=== PATIENT | female | born 1965 | race African-American/Black ===

== ENCOUNTER 2025-02-25 12:51 | Outpatient (CLI) | payer BC, SELFPAY ==
--- OUTSIDE RECORDS SUMMARY | 2025-02-25 13:54 | XMS_ITS | Clinical Summary ---
Author Organization [facility] mame Address [address] [place] [address] Care Team Providers Care Masonry Supervisor Name Role Phone Jeni Carmona Primary Care Provider Allergies Active Allergy Reactions Criticality Noted Date Comments Lisinopril Cough Low 01/03/2018 Medications TRIAMTERENE ORAL Take 37.5 mg by mouth daily. Active rosuvastatin (CRESTOR) 10 mg tablet Take 10 mg by mouth daily at bedtime. Active cephALEXin (KEFLEX) 500 mg capsule Take 1 Capsule (500 mg) by mouth 4 times daily. 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+;Her2 3+ Hair follicle infection 01/03/2018 Overview (01/03/2018): L axilla Encounters Date Type Department Care Team Description 02/06/2025 External Device Data ST[facility] ABSTRACTION Provider, Abstract 02/04/2025 External Device Data [facility] ABSTRACTION Provider, Abstract 12/31/2024 External Device Data [facility] ABSTRACTION Provider, Abstract 12/04/2024 External Device Data [facility] ABSTRACTION Provider, Abstract 12/04/2024 External Device Data [facility] ABSTRACTION Provider, Abstract 12/03/2024 External Device Data [facility] ABSTRACTION Provider, Abstract 12/02/2024 2:30 PM CDT Ancillary Procedure [facility] [address] [place] [address] Luis Regalado MD PMB (postmenopausal bleeding); Enlarged uterus from Last 3 Months Family History Medical History Relation Name Comments Healthy Brother Cancer Father Renal Cancer Maternal Grandfather unknown type Breast Cancer Mother age in 70s Relation Name Status Comments Brother Father Maternal Grandfather Mother Social History Tobacco Use Types Packs/Day Years Used Date Smoking Tobacco: Never Smokeless Tobacco: Never Alcohol Use Standard Drinks/Week Comments Yes 0 (1 standard drink = 0.6 oz pur e alcohol) rare Comments Unknown Sex and Gender Information Value Date Recorded Sex Assigned at Not on file Legal Sex Female 1:38 PM CDT Gender Identity Not on file Sexual Orientation Not on file 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 file Not on fi le Last Filed Vital Signs Vital Sign Reading Time Taken Comments Blood Pressure 135/79 01/03/2018 1:45 PM CDT Pulse 90 01/03/2018 1:45 PM CDT Temperature 37.4 C (99.3 F) 01/03/2018 1:45 PM CDT Respiratory Rate 20 01/03/2018 1:45 PM CDT Oxygen Saturation - - Inhaled Oxygen Concentration - - Weight 90.7 kg (200 lb) 01/03/2018 1:45 PM CDT Height 167.6 cm (5' 6) 01/03/2018 1:45 PM CDT Body Mass Index 32.28 01/03/2018 1:45 PM CDT Plan of Treatment Health Maintenance Due Date Last Done Comments Pre-Diabetes and Diabetes Screening 1964 HPV/Cotest (21-29) 1985 CERVICAL CANCER SCREENING 1994 HPV/Cotest (30-65) 1994 PAP SMEAR 1994 COLORECTAL SCREENING 2009 Colorectal Cancer Screening 2009 FIT-DNA Q 3 years 2009 FIT/FOBT Q 1 year 2009 Flex Sig/CT Colonography Q 5 years 2009 BREAST CANCER SCREENING 08/05/2025 08/05/20 24, 07/31/2023, 12/08/2017, Additional history exists DTAP/TDAP/TD VACCINES (3 - Td or Tdap) 08/05/2026 08/05/2016, 04/06/2013, 07/07/2003 RSV VACCINE (60+ or ) (1 - 1-dose 75+ series) 2039 ZOSTER VACCINE Completed 09/14/2020, 05/24/2020 INFLUENZA VACCINE Completed 06/07/2024, , 06/21/2022, Additional history exists COVID-19 Vaccine Completed 09/19/2024, 12/2022, 05/05/2023, Additional history exists HEPATITIS B VACCINES Aged Out No long er eligible based on patient's age to complete this topic Procedures Procedure Name Priority Date/Time Associated Diagnosis Comments MRI PELVIS W WO CONTRAST Routine 12/02/2024 3:47 PM CDT PMB (postmenopausal bleeding) Enlarged uterus from Last 3 Months Results * MRI PELVIS W WO CONTRAST (12/02/2024 3:47 PM CDT) Anatomical Region Laterality Modality Pelvis Magnetic Resonan ce 12/02/2024 3:47 PM CDT Addenda Addendum by Edgardo Choe MD on 12/06/2024 9:37 AM CDT Gadopiclenol (VUEWAY, ELUCIREM) 0.5 mmol/mL injection 10 mL was utilized. Impressions 12/03/2024 8:50 AM CDT IMPRESSION: Enlarged myomatous uterus as described. Narrative 12/03/2024 8:50 AM CDT INDICATION: Uterine myomas. Standard protocol and after administration of gadolinium contrast. FINDINGS: The uterus is enlarged and lobular in appearance measuring 4 cm in length by 10.4 cm in anterior posterior dimension by up to 13.1 cm in [id number]-[id number] dimension. There are multiple rounded masses throughout the uterus which are heterogeneous in appearance and of mixed-signal intensity most compatible with multiple myomas. Many are likely calcified and enhance heterogeneously following contrast administration. Several are likely degenerating as well. These average approximately 1 cm to 12 cm in size. The largest myoma noted in the fundal region. The ovaries are not discretely visualized for evaluation. There is no free fluid in the pelvis. Procedure Note Edgardo Choe MD - 12/03/2024 INDICATION: Uterine myomas. Standard protocol and after administration of gadolinium contrast. FINDINGS: The uterus is enlarged and lobular in appearance measuring 4 cm in length by 10.4 cm in anterior posterior dimension by up to 13.1 cm in [id number]-kexl dimension. There are multiple rounded masses throughout the uterus which are heterogeneous in appearance and of mixed-signal intensity most compatible with multiple myomas. Many are likely calcified and enhance heterogeneously following contrast administration. Several are likely degenerating as well. These average approximately 1 cm to 12 cm in size. The largest myoma noted in the fundal region. The ovaries are not discretely visualized for evaluation. There is no free fluid in the pelvis. IMPRESSION: Enlarged myomatous uterus as described. Luis Regalado MD MR ORDERABLES Edited Result - Final from Last 3 Months Insurance Care IT CHOICE Care IT CHOICE Care Teams Masonry Supervisor Relationship Specialty Start Date End Date Jeni Carmona MBBS PCP - General Family Practice 01/03/18
--- OUTSIDE RECORDS SUMMARY | 2025-02-25 13:54 | XMS_ITS | Encounter Summary ---
Author Organization [facility] Address [address] [place] [address] Care Team Providers Care Director Of District Office Name Role Phone Ariana Hartman MD Unavailable Cullen Singer MD Unavailable Quentin Davenport MD, Corey Guevara Unavailable Marychuy leylailaLiliane Marie Unavailable Encounter Details Date Type Department Care Team (Late st Contact Info) Description 12/30/2024 Results Follow-Up [facility] - COSTUME RENTAL CLERK [address] [place] [address], [address] [address] Luis Regalado MD [address] [place] [phone] Social History Tobacco Use Types Packs/Day Years Used Date Smoking Tobacco: Never Passive Smoke Exposure: Current Smokeless Tobacco: Never Alcohol Use Standard Drinks/Week Comments Yes 0 (1 standard drink = 0.6 oz pure alcohol) occasionally - socially Once in 6 months. 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 Author Blood Pressure < 140/90 Blood Pressure 110/62(12/25 2:12 PM CDT) No Gerda Cruz MA Blood Pressure < 140/90 Blood Pressure 110/62(12/25 2:12 PM CDT) No Nichole Engel Take recommended medication(s) Lifestyle On track(2018 3:54 PM CDT) No Gerda Cruz MA Take recommended medication(s) Lifestyle No Nichole Engel documented as of this encounter Visit Diagnoses Not on filedocumented in this encounter Care Teams Director Of District Office Relationship Specialty Start Date End Date Corey Saavedra Jr., MD PCP - Attributed-[place] [employer] 03/18/24 Ariana Hartman MD [address] [facility] [address] [place] [address] General Surgery 12/13/11 Cullen Singer MD [address] [place] [address] Dermatology 04/08/15 Liliane Mccall Care Coordination Specialist Care Management 12/04/24 01/18/25 documented as of this encounter
--- OUTSIDE RECORDS SUMMARY | 2025-02-25 13:54 | XMS_ITS | Encounter Summary ---
Author Organization [facility] Health Address [address] [place] [address] Care Team Providers Care Laborer Mine Name Role Phone Reid Coleman MD Primary Care Provider [phone] Ariana Hartman MD Unavailable [phone] Nancy Hood MD Primary Care Provide r Jeni Caromna MD Primary Care Provider [phone] Cullen Singer MD Unavailable [phone] Jeni Carmona MD Unavailable Tiffanie Bar MD Primary Care Provide r Jeni Carmona MD Primary Care Provider + Tiffanie Bar MD Primary Care Provide r Tiffanie Bar MD Unavailable [phone] Quentin Davenport MD, Corey Guevara Primary Care Provid er Unavailable Quentin Davenport MD, Corey Guevara Unavailable Marychuy vailable Liliane Mccall Unavailable Liliane Mccall Unavailable Encounter Details Date Type Department Care Team (Late st Contact Info) Description 09/20/2013 [facility]NAL [facility] [place] [address] [address] Social History Tobacco Use Types Packs/Day Years Used Date Smoking Tobacco: Never Smokeless Tobacco: Never Alcohol Use Standard Drinks/Week Comments No 0 (1 standard drink = 0.6 oz pur e alcohol) Comments Unknown Sex and Gender Information Value Date Recorded Sex Assigned at Not on file Legal Sex Female 6:23 AM AUDIO INSTALLER Gender Identity Not on file Sexual Orientation Not on file documented as of this encounter Plan of Treatment Upcoming Encounters Date Type Department Care Team (Late st Contact Info) Description 07/18/2025 9:20 AM CDT Office Visit [facility] - Family Medicine [address] [place] [phone] Park Fuentes MD [address] [place] [address] documented as of this encounter Visit Diagnoses Not on filedocumented in this encounter Additional Health Concerns Infection Onset Date Last Indicated Resolved Time COVID-19 Under Investigation 11/17/2022 11/17/2022 11/17/2022 11:57 AM AUDIO INSTALLER documented as of this encounter Care Teams Laborer Mine Relationship Specialty [place] [address] [facility] [phone] PCP - General 07/26/10 12/16/[address] [facility] [address] [place] [address] PCP - General Family Medicine 12/17/14 04/07/15 Jeni Carmona MD [facility] [place] [address] PCP - General Family Medicine 04/08/15 06/14/20 Jeni Carmona MD [address] [place] [phone] PCP - Attributed-[place] [employer] 11/10/17 02/03/21 Tiffanie Bar MD [address] [place] [address] PCP - General Family Medicine 06/15/20 04/29/21 Jeni Carmona MD [address] [place] [address] PCP - General 04/30/21 05/11/21 Tiffanie Bar MD [address] [place] [address] PCP - General Family Medicine 05/12/21 03/06/23 Tiffanie Bar MD [address] [place] [address] PCP - Attributed-[place] [employer] 11/16/21 03/04/22 Corey Saavedra Jr., MD [address] [place] [address] PCP - General Family Medicine 03/07/23 12/24/24 Corey Saavedra Jr., MD PCP - Attributed-[place] [employer] 03/18/24 Ariana Hartman MD [address] [place] [address] General Surgery 12/13/11 Cullen Singer MD [facility] [place] [address] Dermatology 04/08/15 Liliane Mccall Care Coordination Specialist Care Management 05/27/24 05/27/24 Liliane Mccall Care Coordination Specialist Care Management 12/04/24 01/18/25 documented as of this encounter
--- OUTSIDE RECORDS SUMMARY | 2025-02-25 13:54 | XMS_ITS | Patient Health Record ---
Author Organization [facility] Address [address] [facility] [address] [place], [place] [id number] Care Team Providers Care Bait Digger Name Role Phone ERWIN LOPEZ Unavailable [phone] Reason For Referral No Information Plan Of Treatment No Information Insurance Providers Payer Name Payer Address Payer Phone Subscriber Number Group Number Insured Name Patient Relationship to Insured Coverage Start Date Coverage End Date Jennifer MORGAN (Ngozi Long) [address] [place], [place] [id number] [phone] Tory Noland Self - patient is the insured
--- OUTSIDE RECORDS SUMMARY | 2025-02-25 13:54 | XMS_ITS | Patient Health Record ---
Author Organization [facility] Address [address] [place], [place] [address] Care Team Providers Care Piano Mover Name Role Phone Keo Lockwood Primary Care Provider Reason For Referral No Information Medications Medication SIG (Take, Route, Fr equency, Duration) Notes Start Date End Date Status Mucinex 600 MG Take one tablet by m outh every twelve hours as needed for cough Oral as directed 04/25/2012 Active Avelox 400 MG Oral once a day 04/25/2012 Active Immunizations Vaccine Route Administration Date Status Comme nts PSD-COV VAC MODERNA 23 12+ IM Intramuscular 08/21/2023 Adm inistered Social History Sex Assigned At : Social History Observation Description Sex Assigned At Female Plan Of Treatment No Information Insurance Providers Payer Name Payer Address Payer Phone Subscriber Number Group Number Insured Name Patient Relationship to Insured Coverage Start Date Coverage End Date Jennifer RAVI ([facility]) [address] [place] [id number] MICAELA ROBLEDO Self - patient is the insured 2
--- OUTSIDE RECORDS SUMMARY | 2025-02-25 13:54 | XMS_ITS | Clinical Summary ---
Author Organization [facility] [employer] Address [address] [place] [address] Care Team Providers Care Table Maker Name Role Phone Ariana Hartman MD Unavailable [phone] Cullen Singer MD Unavailable Quentin Davenport MD, Corey Guevara Unavailable Marychuy vailable Source Comments [facility],non-owned Affiliates and Associated Physician Practices is amultiple site organization consisting of ambulatory clinics and hospital sitesin [place], [place], [place] and [place]. This disclosure is being madepursuant to the Care Everywhere program and may not contain all information available regarding this patient. Last updated 18.[facility] [employer] Allergies Active Allergy Reactions Criticality Noted Date Comments Amlodipine Base Palpitations 06/02/2014 Lisinopril Cough 08/26/2011 Medications * Be aware that medications may not be up to date on this document. Alwaysverify current medications with the patient. fish oil/omega-3 fatty acids (Promega;Cardi-Om ega 3) 1000 MG capsule Take 1 (one) capsule by mouth 2 times daily with morning and evening meal Active Ergocalciferol (VITAMIN D PO) Take 5,000 Int'l Units by mouth once daily Active albuterol HFA (Proventil; Ventolin; Proair) 108 (90 Base) MCG/ACT inhaler Inhale 2 (two) puffs by mouth every 6 hours as needed for Wheezing or Shortness of Breath 07/21/20 24 Active losartan (Cozaar) 50 MG tabletIndications :Essential hypertension, benign Take 1 (one) tablet by mouth once daily 90 tablet 1 12/26/19 25 Active triamterene-hydro CHLOROthiazide (Maxzide-25) 37.5-25 MG tabletIndications :Essential hypertension, benign Take 1 (one) tablet by mouth once daily 90 tablet 1 12/26/19 25 Active rosuvastatin (Crestor) 10 MG tabletIndications :Mixed hyperlipidemia Take 1 (one) tablet by mouth once daily 90 tablet 1 12/26/19 25 Active ketoconazole (Nizoral) 2 % shampooIndication s:Dandruff Apply to affected area once daily 120 mL 12/26/19 25 Active loratadine (Claritin) 10 MG tabletIndications :Non-seasonal allergic rhinitis due to other allergic trigger Take 1 (one) tablet by mouth once daily 90 tablet 1 12/26/19 25 Active fluticasone propionate (Flonase) 50 MCG/ACT nasal sprayIndications: Allergic Rhinitis Hosmer 2 (two) sprays into each nostril once daily Reasons: Allergic Rhinitis 16 g 3 12/26/19 25 Active omeprazole (PriLOSEC) 20 MG capsuleIndication s:Gastroesophagea l Reflux Disease Take 1 (one) capsule by mouth once daily Reasons: Gastroesophageal Reflux Disease 90 capsule 12/26/19 25 Active Active Problems Problem Noted Date Diagnosed Date Encounter for follow-up surveillance of breast c ancer 08/06/2024 Personal history of breast cancer 08/31/2023 Status post right breast lumpectomy 08/01/2023 12/29/2023 Malignant neoplasm of female breast 05/14/2021 History of shingles 10/26/2019 Overview (10/26/2019): 10/25/2019: Diagnosis with herpes zoster on right medial thigh 2 months ago. Developed a secondary bacterial infection that has now resolved. Continues to have some itching in the area. No rash noted. Concerned that condition caused weakness of right leg. Assessment & Plan (10/26/2019 1:38 PM MATERIAL CLERK): No lesion noted on exam. Reassured. Reminded patient that she had complained of R leg pain/weakness for a year prior to episode of H. Zoster. Right wrist pain 12/10/2018 Overview (12/10/2018): 12/10/18: Hurting for 2 months. Had difficulty pulling off her boots. R handed. No swelling. Has pain mainly at night. Occasional numbness of hands. Assessment & Plan (12/23/2018 12:08 AM CDT): Advised on wrist splint. Recommend seeing a hand surgeon. Right leg weakness 07/18/2018 Overview (10/26/2019): 07/18/18: Broke her femur in 2004. Leg has been weaker and smaller since then. No numbness. 10/25/19: was favoring her R leg after the episode of shingles 2 months ago. Harder to climb stairs. Not limping. Was not exercising for nearly a month. Assessment & Plan (10/26/2019 1:41 PM MATERIAL CLERK): No neurological no loss noted. Unclear if secondary to deconditioning. Consider PT. Requesting referral to [facility]. Consider ortho consult if not improved. Assessment & Plan (07/18/2018 7:21 PM CDT): Referred to PT. Skin lesion 07/18/2018 Overview (07/18/2018): 07/18/18: Axillary skin gets dark and inflamed for the past few months. Was seen by a bandage winding machine operator a month ago and was told the changes was due to deodorant use. Has stopped use with no relief. No itching. Has lost some skin. Had boils but was told she does not have hydradenitis suppurativa. Assessment & Plan (07/18/2018 7:21 PM CDT): Unclear if secondary to reaction to radiation. Areas of alopecia noted. Recommend dermatology consult. Fluttering heart 04/27/2018 Overview (04/27/2018): 04/27/18: Has symptoms for 6 months. Feels a flutter mainly in abdomen lasting a few seconds. No sensation of dizziness or chest pain.. No episodes when awake. No difficulty breathing. Assessment & Plan (05/07/2018 12:13 AM CDT): Was told letrozole may cause the symptom which she started only 11 days ago. EKG done today is unchanged from previous one in [facility]. Recomemnd Holter monitor. GERD (gastroesophageal reflux disease) 8 Overview (04/27/2018): 04/27/18: Has occasional coughing after eating certain foods. Worsens if she lies down after eating. No blood in stools. No melena. No dysphagia. Assessment & Plan (05/07/2018 12:12 AM CDT): Recommend taking Prilosec 40 mg daily for 1-2 weeks. Recommend GI consult if symptoms do not improve. Elevated glucose 03/02/2018 Overview (12/23/2018): 03/02/18: Noted at her last blood test 6 months ago. Also noted during breast cancer treatment. 12/10/2018: Noted on labs in the past. Assessment & Plan (12/23/2018 12:07 AM CDT): Recheck hemoglobin A1c. Assessment & Plan (03/11/2018 4:25 PM CDT): Will check hemoglobin A1c. 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 Underwent R lumpectomy on January 23.Staging done. [place] node was neg. DCIS. Scheduled for radiation on March 12. No chemo. Assessment & Plan (03/02/2018 4:22 PM CDT): Will get hormone treatment after radiation. Breast neoplasm, Tis (DCIS), right 12/08/2017 Cancer Staging:Clinical stage from 12/17/2017:Stage 0(cTis (DCIS), cN0, cM0, ER+, AZ+, HER2+) - Signed by Sari Moreno MD on 09/24/2018 Overview (09/24/2018): Right, subareolar, intraductal papillary carcinoma. Clinical HgwX9T3, stage 0. ER pos 95% (strong), AZ pos 38% (strong), Her-2 pos (3+ on IHC), ki-67 high 37% 2.2 cm on US Surgeon: Dr. Hartman: initially planned bct, but cancelled. Went to cancer treatment [facility] Med onc: Dr. Grisel Merino Umbilical hernia without obstruction and without gangrene 02/06/2017 Overview (02/06/2017): Boscobel a knot at her belly button a week ago. Had some pain. Cannot feel it now. Assessment & Plan (02/06/2017 3:37 PM CDT): Reviewed treatment options. Surgical consult if it gets painful or does not reduce. Environmental allergies 07/17/2015 Overview (07/18/2018): 07/17/15:Has a chronic cough. Is congested. Ongoing for atleast 20 yrs. Using Claritin. 07/18/18: Started when she returned from the hospital in [place] a week ago. Can hear herself wheezing. Coughing up thick phlegm. No fever, ST. No sneezing. Assessment & Plan (07/18/2018 7:25 PM CDT): Normal exam. Recommend antihistamine, hydration and expectorants. May call for antibiotics if she develops a fever or symptoms worsen. Assessment & Plan (07/17/2015 4:34 PM CDT): Recommend starting Flonase and nasal saline rinses. Consider albuterol inhalor if cough persists. Preventative health care 04/08/2015 Overview (08/05/2016): Has not had a pap for 4 years. Mammgram done this month. Has not had a colonoscopy done. Assessment & Plan (08/05/2016 5:27 PM MATERIAL CLERK): Wants to see a scrap drop operator for a pap. Recommend getting a colonoscopy. Need fasting labs. Immunizations updated. Weight gain 04/08/2015 Overview (05/25/2017): Has been watching her diet and exercising in order to lose weight. Has lost a total of 8 pounds in the past year. Assessment & Plan (05/25/2017 11:16 AM CDT): Will continue lifestyle changes. Understands that weight loss will help with blood pressure control. Urge incontinence 04/08/2015 Overview (08/08/2018): 08/08/18: Ongoing for 3 yrs. Progressively worsening. Wearing pads for 2 yrs. Has not had PT. Has not been on medication. Has urge incontinence. No stress incontinence. Assessment & Plan (08/11/2018 3:13 PM MATERIAL CLERK): Wants to go to [facility] for treatment. Referred for physical therapy. Advised on Kegel exercises. Will check UA. Essential hypertension, benign 06/02/2014 Overview (10/26/2019): Taking medication at night as she tends to forget in the daytime. Denies any headaches or blurred vision. 08/05/16: Denies any symptoms of chest pain or dizziness. 02/06/17: Takes medication in am. No dizziness, chest pain or headaches. No pedal edema. 05/15/17: No chest pain or dizziness. 09/06/17: Wants refills on medication. Labs done last 13 months ago. 03/02/2018: On triamterene hydrochlorothiazide 37.5/25 mg daily. Tolerating medication well. No history of associated chest pain or palpitations. Blood pressure has improved. 07/18/18: BP was 150/98 on Sat 5 days ago. No chest pain or SOB. Gained weight after starting Arimidex. Had cough when she tried lisinopril in the past. 08/08/18: No dizziness or chest pain with decreased bp. On atenolol for nearly 3 weeks. No associated fatigue On Maxide 37.5/25 daily. 12/10/18: On triamterene HCTZ 37.5/25 and atenolol 25 mg daily. No chest pain or palpitations. No fatigue. Labs done more than a year ago. 04/23/19: Concerned about increased glucose and weight gain on bp meds. Lost 20 lbs in 4 months. Skipped atenolol last night. 10/25/19: Tends to miss her atenolol dose at night. No chest pain or SOB. Had a stressful day. Labs done a month ago. Assessment & Plan (10/26/2019 1:39 PM MATERIAL CLERK): Continue triamterene hydrochlorothiazide 37.5/25 mg daily. Blood pressure decreased on rechecking. Assessment & Plan (04/23/2019 2:59 PM CDT): Wants to try other medication. Will try irbesartan. May decrease to 1/2 dose Maxzide. Stop if bp continues to be normal. Reviewed symptoms of hypotension. BP may decrease with further weight loss. Assessment & Plan (12/23/2018 12:03 AM CDT): Need to recheck labs. Blood pressure has improved. Need to monitor. Assessment & Plan (08/11/2018 3:13 PM MATERIAL CLERK): Does not want to try a calcium channel shazia as she had side effects. Wants to go of atenolol. Recommend decreasing dose and continuing to monitor blood pressure. Continue Maxzide for now. Assessment & Plan (07/18/2018 7:22 PM CDT): Allergic to amlodipine as well. Recommend using a beta-shazia. Low dose atenolol added to regimen. Consider decreasing or stopping medication after she loses weight. Assessment & Plan (03/11/2018 4:25 PM CDT): Need to recheck labs. Medication refilled for 6 months. Assessment & Plan (09/06/2017 12:48 PM MATERIAL CLERK): Advised on getting labs done prior to further refills. BP is controlled. Assessment & Plan (05/25/2017 11:18 AM CDT): BP is essentially unchanged with addition of medication. Will continue same for now. Trying to lose weight. Need to check labs. Assessment & Plan (02/06/2017 3:50 PM CDT): Does not want to start another agent. Weight loss noted. Wants to lose more weight. BP on manual rechecking was 144/74. Wants h/o depression taken off her chart as she feels symptoms have resolved. Consider elevation in bp secondary to anxiety. Recheck blood pressure, nurse only visit. follow up in 3 months. Assessment & Plan (08/05/2016 5:26 PM MATERIAL CLERK): Need to get fasting labs prior to refilling medication. Weight gain noted. Advised on how weight loss would help decrease bp. Assessment & Plan (08/25/2015 5:12 PM MATERIAL CLERK): Blood pressure is within normal limits. She is due to take medication in 2 hours. Understands that weight loss will help. Has lost significant weight in the past month. Follow up in 3 months Assessment & Plan (07/17/2015 4:21 PM CDT): Labs done today. Will refill accordingly. Mixed hyperlipidemia 06/02/2014 Overview (04/23/2019): On medication for 5 yrs atleast. On Crestor 10 mg daily. Tolerating medication well. 12/10/2018: On rosuvastatin 10 mg daily. No complaints of myalgia. 04/23/19: Feels cholesterol has improved with diet and exercise. Would prefer to stop medication. Had cholesterol checked a few weeks ago and was normal. Assessment & Plan (04/23/2019 12:08 PM CDT): Will stop medication and recheck labs in June. Assessment & Plan (12/23/2018 12:04 AM CDT): Check labs. Assessment & Plan (03/11/2018 4:24 PM CDT): Recommend rechecking labs prior to further refills. Assessment & Plan (08/05/2016 5:27 PM MATERIAL CLERK): Need to repeat labs prior to further refills. Assessment & Plan (07/17/2015 4:22 PM CDT): Labs awaited. Vitamin D deficiency 06/02/2014 Overview (12/23/2018): 03/02/2018: Was on medication. Labs done in July, indicate normal levels. 12/10/2018: Not on medication. Assessment & Plan (12/23/2018 12:05 AM CDT): Requesting labs be rechecked. Assessment & Plan (03/11/2018 4:23 PM CDT): May continue [id number] international units of vitamin-D 3 daily. Allergic rhinitis 06/02/2014 Overview (03/02/2018): 03/02/18: Taking Claritin year- round. Worse in the spring. Has runny nose, congestion. No watering of eyes. Sneezes a lot. Fatigued. Does not want to use steroids. Assessment & Plan (03/02/2018 4:26 PM CDT): Claritin controls symptoms. Medication refilled. Consider nasal saline rinse. Anxiety state 06/02/2014 Overview (06/18/2015): Major depressive disorder, recurrent episode Overview (01/13/2021): 08/25/2015 OV, Dr. Carmona Notes she is under a lot of stress taking care of her parents, both have dementia and live in their own home. Is also stressed about work. Feels this is transient. Has been on Lexapro in the past for short periods- 2 months at a time. Is concerned about associated weight gain. Notes she is doing things like picking at her hair, cant stop thinking about her worries etc. Assessment & Plan (08/25/2015 5:14 PM MATERIAL CLERK): Symptoms are most likely due to RADHA then depression.. Will try Prozac. Strongly urged to start counseling. Follow up in 3 months. May need to increase dosage to 40 mg daily in 1-2 weeks if she does not notice any improvement. Obstructive sleep apnea 06/02/2014 Overview (10/26/2019): 10/25/19: Using a CPAP machine for atleast 5 yrs. Sees a bull riveter at [place]. Sleep study done in Jun 2018. CPAP machine was recently changed. Assessment & Plan (10/26/2019 1:40 PM MATERIAL CLERK): Encouraged to continue use of machine. Advised on better blood pressure control and weight loss with use. Seborrhea 06/02/2014 Overview (05/07/2018): 05/15/17:Ongoing for 3-4 yrs. Has scaling, mild pruritis. Has good results of Nizoral but causes drying of scalp. 04/27/18: Lesions on scalp have recurred. No bleeding Mainly scaling. Assessment & Plan (05/07/2018 12:11 AM CDT): Restart Nizoral shampoo. FU if not improved. Assessment & Plan (05/15/2017 2:57 PM CDT): Will continue Nizoral. Will hold off on fluocinolone. Differential is psoriasis. Postmenopausal bleeding Bulky or enlarged uterus Leiomyoma of body of uterus Resolved Problems Problem Noted Date Diagnosed Date Resolved Date Blood glucose elevated 12/10/201812/10 Ductal carcinoma in situ (DC IS) of right breast 12/27/2017 04/27/2018 URI (upper respiratory infection) 09/06/2017 09/20/2017 Overview (09/06/2017): I am here to get antibiotics and to check for pneumonia Started coughing 2 days ago. Had chills the following day. Sneezing. Coughing up some white phlegm. A lot of nasal discharge. Sore throat yesterday. No contacts. Assessment & Plan (09/06/2017 12:53 PM MATERIAL CLERK): Normal exam. Refused influenza test. Agreed to a CBC. Concerned socorro cough syrup would increase her bp. Will continue using Coricidin. Cough 08/25/2015 09/22/2015 Overview (08/25/2015): Chronic cough. Has underlying allergies but is concerned about using nasal steroids. No history of asthma but notes that she hears herself wheeze occasionally. Assessment & Plan (08/25/2015 5:15 PM MATERIAL CLERK): Unclear if this is cough variant asthma. Recommend trying albuterol. Medication not available at the clinic to try the nebulizer. Fatigue 04/08/2015 12/23/2018 Overweight 06/02/2014 12/23/2018 Overview (07/26/2015): Major depressive disorder, s marci episode, mild 06/02/2014 08/05/2016 Leiomyoma of uterus 06/02/2014 12/24/19 19 Overview (06/18/2015): Lumbago 06/02/2014 12/23/2018 Abnormal mammogram 06/02/2014 8 Overview (06/18/2015): Encounters Date Type Department Care Team Description 12/30/2024 Results Follow-Up [facility] - BACK PANEL PADDER [address] [place] [address], [address] [place] [phone] Luis Regalado MD 12/25/2024 2:00 PM CDT Office Visit [place] [phone] Christin Engel, EMERGENCY MANAGEMENT SPECIALIST-SUPERINTENDENT STATIONS Essential hypertension, benign (Primary Dx); Mixed hyperlipidemia; Post-menopausal bleeding; Non-seasonal allergic rhinitis due to other allergic trigger; Dandruff; Prediabetes; Personal history of breast cancer; Gastroesophageal reflux disease, unspecified whether esophagitis present 12/25/2024 Travel 12/16/2024 Telephone [place] [phone] Corey Saavedra Jr., MD Update 12/06/2024 Orders Only [facility] - BACK PANEL PADDER [address] [place] [address], [address] [phone] Luis Regalado MD PMB (postmenopausal bleeding); Bulky or enlarged uterus 12/04/2024 Patient Outreach [facility] - Care Coordination [address] [place] [phone] Liliane Mccall 11/28/[address] [phone] Corey Saavedra Jr., MD Refill Request 11/25/2024 1:30 PM CDT Office Visit [facility] - BACK PANEL PADDER [address] [place] [address], [address] [place] [phone] Luis Regalado MD Uterine leiomyoma, unspecified location (Primary Dx); Enlarged uterus; PMB (postmenopausal bleeding); Anxiety about treatment from Last 3 Months Immunizations Immunization Administration Dates Next Due COVID MODERNA 12+ yr 50mcg/0.5mL 08/21/2023 COVID PFIZER 12+YR 30MCG/0.3mL 09/19/2024 COVID PFIZER BIVALENT 12Y+ 30mcg/0.3ML 05/05/2023 Covid Pfizer primary monoval ent 12+ yr 0.3mL Purple cap 01/05/2022,08/30/2021,08/14/2021,2020,10/15/2020 FLU VACCINE QUAD IIV4 PF ID 06/21/2023 FLU VACCINE TRI IIV3 SPLIT P F IM (FLUVIRIN) 06/30/2016 INFLUENZA VACCINE 06/18/2021, 9,06/18/2019,2017,06/19/2018,06/19/2018,06/21/2017,1 ,06/30/2016,05/30/2012, 012,07/07/2003 INFLUENZA VACCINE, CELL CULT URE, TRIV. (FLUCELVAX TRIVALENT; 6MO+), 0.5 ML (CCIIV3) 06/07/2024 INFLUENZA VACCINE, QUADR. (F LUZONE; FLULAVAL; FLUARIX; AFLURIA QUADRIVALENT; 6MO+), 0.5 ML (IIV4) 06/21/2022,06/15/2020 PNEUMOCOCCAL PPSV23 08/21/2020 Pneumococcal Pcv13 Conj 05/18/2020 RSV ABRYSVO PREG OR 60y+ 0.5mL 06/07/2024 TD (AGE 7-ADULT) 07/07/2003 TDAP (7yrs+) 08/05/2016 TDAP, HISTORIC VACCINE 04/06/2013 Zoster Hzv Vacc Recombinant Inj Im 09/14,09/14/2020,05/24/2020,2019 Family History Medical History Relation Name Comments Alzheimer's Disease Father Cancer Father kidney Colon polyps Father Cancer - Breast Mother Hypertension Mother Memory Loss Mother Cancer - Breast Other cousin-paternal paternal cousin Relation Name Status Comments Brother Alive Father Mother Other cousin-paternal Alive Social History Tobacco Use Types Packs/Day Years [...] on file Legal Sex Female 6:23 AM MATERIAL CLERK Gender Identity Not on file Sexual Orientation Not on file 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 Not on file Not on file Last Filed Vital Signs Vital Sign Reading Time Taken Comments Blood Pressure 110/62 12/25/2024 2:12 PM CDT Pulse 70 12/25/2024 2:12 PM CDT Temperature 36.2 C (97.2 F) 08/21/2024 1:50 PM MATERIAL CLERK Respiratory Rate 12 12/25/2024 2:12 PM CDT Oxygen Saturation 100% 12/25/2024 2:12 PM CDT Inhaled Oxygen Concentration - - Weight 92.1 kg (203 lb) 12/25/2024 2:12 PM CDT Height 167.6 cm (5' 6) 12/25/2024 2:12 PM CDT Body Mass Index 32.77 12/25/2024 2:12 PM CDT Plan of Treatment Upcoming Encounters Date Type Department Care Team (Late st Contact Info) Description 07/18/2025 9:20 AM CDT Office Visit [facility] - Family Medicine [address] [place] [phone] Park Fuentes MD [address] [place] [address] Health Maintenance Due Date Last Done Comments COLOGUARD (AGES 45-75) - COLON CA SCREENING [address] COLONOGRAPHY - COLON CA SCREENING 1965 FIT - COLON CA SCREENING 1965 FLEX SIG - COLON CA SCREENING 1964 HIV SCREENING 1979 HEPATITIS B VACCINE (1 of 3 - Risk 3-dose series) 2024 COLONOSCOPY - COLON CA SCREENING 12/08/2024 12/08/2014 (Other - see comments) Colorectal Cancer Screening 12/08/2024 MAMMOGRAM 08/05/2025 08/05/2024, 07/19, 07/31/2023, Additional history exists PNEUMOCOCCAL VACCINE 50+ (3 of 3 - PCV20 or PCV21) 08/21/2025 08/21/2020, 05/18/2020 DTAP/TDAP/TD VACCINES (4 - Td or Tdap) 08/05/2026 08/05/2016, 04/06/2013, 07/07/2003 SCREENING FOR DIABETES 08/05/2027 , 08/05/2024, 07/31/2023, Additional history exists PAP SMEAR 10/31/2027 10/31/2024, 08/18, 12/08/2014 (Other - see comments), Additional history exists HEPATITIS C SCREENING Completed 08/10/2016 ZOSTER VACCINE Completed 09/14/2020, 08/19, 05/24/2020, Additional history exists INFLUENZA VACCINE Completed 06/07/2024, , 06/21/2022, Additional history exists Respiratory Syncytial Virus (RSV) Vaccine Pt: or over 60 yrs Completed 06/07/2024 COVID-19 VACCINE Completed 09/19/2024, 12/2022, 05/05/2023, Additional history exists DEPRESSION SCREENING Completed 12/25/2024, 01/03/2024, 09/05/2023, Additional history exists HIB VACCINE Aged Out No longer eligi ble based on patient's age to complete this topic HPV VACCINE Aged Out No longer eligi ble based on patient's age to complete this topic MENINGOCOCCAL (Group B) VACCINE SHARED DECISION-MAKING Aged Out No longer eligible based on patient's age to complete this topic MENINGOCOCCAL GROUPS A/C/Y/W VACCINE Aged Out No longer eligible based on patient's age to complete this topic Goals Goal Patient Goal Type Associated Problems Recent Progress Patient-Stated? Author Blood Pressure < 140/90 Blood Pressure 110/62(12/25 2:12 PM CDT) No Gerda Cruz MA Blood Pressure < 140/90 Blood Pressure 110/62(12/25 2:12 PM CDT) No Nichole Engel Take recommended medication(s) Lifestyle On track(2018 3:54 PM CDT) No Gerda Cruz MA Take recommended medication(s) Lifestyle No Nichole Engel Procedures Procedure Name Priority Date/Time Associated Diagnosis Comments IMAGING/RADIOLOGY/XRA Y RESULTS ORDER 12/02/2024 IMAGING/RADIOLOGY/XRA Y RESULTS ORDER 12/02/2024 MRI PELVIS WWO CONTRAST Routine 12/02/2024 PMB (postmenopausal bleeding) Bulky or enlarged uterus PAP IG LB CT+NG+TV RFLX HPV ASCU Routine 10/31/2024 2:34 PM MATERIAL CLERK PMB (postmenopausal bleeding) Pap smear for cervical cancer screening MAMMOGRAM Routine 08/05/2024 1:57 PM MATERIAL CLERK COMPREHENSIVE METABOLIC PANEL Routine 08/22/2019 11:32 AM MATERIAL CLERK Mixed hyperlipidemia HEPATITIS C ANTIBODY Routine 08/10/2016 10:38 AM MATERIAL CLERK Preventative health care from Last 3 Months or Most Recently Relevant to Health Maintenance Results * IMAGING RADIOLOGY XRAY RESULTS ORDER (12/02/2024) Only the most recent of2 resultswithin the time period is included. Anatomical Region Laterality Modality Other 12/02/2024 Narrative 12/02/2024 Ordered by an unspecified provider. us Scanned Document IMAGING Final Result * MRI Pelvis Wwo Contrast (12/02/2024) Anatomical Region Laterality Modality Pelvis Magnetic Resonan ce 12/02/2024 Luis Regalado MD MR ORDERABLES Edited Result - Final * PAP IG LB CT+NG+TV RFLX HPV ASCU (10/31/2024 2:34 PM MATERIAL CLERK) Diagnosis Comment [facility] ACCOUNT BILL Comment:NEGATIVE FOR INTRAEP ITHELIAL LESION OR MALIGNANCY. Specimen Adequacy Comment [facility] ACCOUNT BILL Comment: Satisfactory for evaluation. Endocervical and/or squamous metaplastic cells (endocervical component) are present. Clinician Provided ICD10 Comment [facility] ACCOUNT BILL Comment: N95.0 Z12.4 Performed by Comment [facility] ACCOUNT BILL Comment:Jordon Reyes totechnologist (ASCP) Comment . [facility] ACCOUNT BILL Note Comment [facility] ACCOUNT BILL Comment: The Pap smear is a screening test designed to aid in the detection of premalignant and malignant conditions of the uterine cervix. It is not a diagnostic procedure and should not be used as the sole means of detecting cervical cancer. Both false-positive and false-negative reports do occur. IGLBP CPT Code Automation Comment [facility] ACCOUNT BILL Comment: This liquid based ThinPrep(R) pap test was screened with the use of an image guided system. Note Comment [facility] ACCOUNT BILL Comment: The HPV DNA reflex criteria were not met with this specimen result therefore, no HPV testing was performed. Chlamydia trachomatis ESTELLA Negative Negative [facility] ACCOUNT BILL GC ESTELLA Negative Negative [facility] ACCOUNT BILL Trichomonas vaginalis by ESTELLA Negative Negative [facility] ACCOUNT BILL PART OF UTERINE CERVIX / Unknown 10/31/2024 2:34 PM MATERIAL CLERK 10/31/2024 Comment:Cervix Release to ia t Narrative [facility] ACCOUNT BILL - 11/04/2024 5:09 PM MATERIAL CLERK Performed at: - [facility] [id number] Plug Cutting Machine Operator: Bibi Coto MD, Phone: [phone] Performed at: 02 - [facility] [id number] Plug Cutting Machine Operator: Bibi Coto MD, Phone: [phone] Specimen Comment: [id number] Specimen Comment: No. of containers..01 ThinPrep Vial Luis Regalado MD LAB - PATHOLOGY/CYTOLOGY ORDERA BLES Final Result [facility] ACCOUNT BILL [address] [place] [address] * MAMMOGRAM (08/05/2024 1:57 PM MATERIAL CLERK) Anatomical Region Laterality Modality Other us Zen James MD SCANNING ONLY Final Result * (ABNORMAL) COMPREHENSIVE METABOLIC PANEL (08/22/2019 11:32 AM MATERIAL CLERK) Glucose 98 70 - 105 mg/dL [facility] INSURANCE BILL BUN 14 9.8 - 20.1 mg/dL [facility] INSURANCE BILL Creatinine 1.05 0.57 - 1.11 mg/dL [facility] INSURANCE BILL eGFR by MDRD 54(L) >60 mL/min/1.7 3m2 [facility] INSURANCE BILL eGFR by MDRD >60 >60 mL/min/1.7 3m2 [facility] INSURANCE BILL Sodium 138 136 - 145 mmol/L [facility] INSURANCE BILL Potassium 4.7 3.5 - 4.7 mmol/L [facility] INSURANCE BILL Chloride 98 98 - 107 mmol/L [facility] INSURANCE BILL CO2 30 23 - 31 mmol/L [facility] INSURANCE BILL Calcium 10.0 8.4 - 10.4 mg/dL [facility] INSURANCE BILL Protein Total 7.6 6.4 - 8.3 gm/dL [facility] INSURANCE BILL Albumin 4.5 3.5 - 5.2 gm/dL [facility] INSURANCE BILL Bilirubin Total 0.7 0.2 - 1.0 mg/dL [facility] INSURANCE BILL Alkaline Phosphatase 84 40 - 150 U/L [facility] INSURANCE BILL AST 24 5 - 34 U/L [facility] INSURANCE BILL ALT 24 0 - 61 U/L [facility] INSURANCE BILL Blood BLOOD SPECIMEN / Unknown 08/22/2019 11:32 AM MATERIAL CLERK 08/22/2019 Narrative Resulting Agency Comment Lab Testing performed at: [facility] [address] [place] [id number] Jeni Carmona MD LAB - CHEMISTRY ORDERABLES Final Result [facility] INSURANCE BILL [address] [place] [address] * HEPATITIS C ANTIBODY (08/10/2016 10:38 AM MATERIAL CLERK) [facility] Hepatitis C Antibody <0.1 0.0 - 0.9 s/co ratio [facility] ACCOUNT BILL Comment: Negative: < 0.8 Indeterminate: 0.8 - 0.9 Positive: > 0.9 . The CDC recommends that a positive HCV antibody result be followed up with a HCV Nucleic Acid Amplification test ([id number]). Blood BLOOD SPECIMEN / Unknown 08/10/2016 10:38 AM MATERIAL CLERK 08/10/2016 Narrative Resulting Agency Comment [facility] [address] [facility] [id number] Jeni Carmona MD LAB - CHEMISTRY ORDERABLES Final Result [facility] ACCOUNT BILL [address] [place] [address] from Last 3 Months or Most Recently Relevant to Health Maintenance Insurance ANTHEM ANTHEM Care Teams Table Maker Relationship Specialty Start Date End Date Corey Saavedra Jr., MD PCP - Attributed-[place] [employer] 03/18/24 Ariana Hartman MD [address] [place] [address] General Surgery 12/13/11 Cullen Singer MD [address] [place] [address] Dermatology 04/08/15
[2025-02-25 14:04] LABS: Anion Gap 9 mmol/L (4-12); Blood Urea Nitrogen 15 mg/dL (7-17); Calcium 9.6 mg/dL (8.4-10.2); Carbon Dioxide 29 mmol/L (22-30); Chloride 103 mmol/L (98-107); Estimated Glomerular Filt Rate > 60; Glucose 95 mg/dL (65-110); Potassium 3.8 mmol/L (3.4-5.0); Sodium 141 mmol/L (137-145)
== END 2025-02-25 12:52 | disposition home or self-care (01) ==
LOC: ANHSURGERY 12:59
PROVIDERS: Anesthesiology; Visit Provider Obstetrics & Gynecology
DX: Z79.899 Other long term (current) drug therapy (principal); Z01.812 Encounter for preprocedural laboratory examination; I10 Essential (primary) hypertension; E78.5 Hyperlipidemia, unspecified; Z85.3 Personal history of malignant neoplasm of breast
CPT/HCPCS: 36415; 80048

== ENCOUNTER 2025-02-28 01:05 | Day surgery (SDC) | payer BC, SELFPAY ==
[2025-02-21 09:01] VITALS: BMI 33.1
--- NOTE | 2025-02-21 09:13 | PC.NURSE ---
Report to the Outpatient Waiting Room, entrance under the green pavilion located off [facility], at time _0945_ on date _[id number]_. Planned Procedure Time: _1145_.? Time changes happen often and if your time is changed the preop area will call you the afternoon before. - You and your visitor will be asked to self-screen and do not enter if you have any COVID symptoms. Please call surgeon if you need to reschedule. - A mask is optional within the hospital at this time. Patients may have clear liquids (water, carbonated beverages, clear teas, apple juice) until 3 hours prior to surgery with a maximum of 20 ounces. - No food from midnight until time of surgery and no smoking, or chewing tobacco (or any form of nicotine). No chewing gum, candy or mints. Take only the following medications with a SIP of water on the morning of surgery: ___None____ DO NOT STOP ANY OF YOUR OTHER PRESCRIPTION MEDICATIONS PRIOR TO SURGERY EXCEPT THE FOLLOWING Hold all vitamins and supplements for 3 days per anesthesiologist. Medications to discontinue per physician Date to take last [id number]__[id number]___ Please no make-up, nail iraqi, hairspray, perfume, deodorant, or body powder the day of surgery.? No jewelry (including any body piercings) or valuables the day of surgery, leave them at home.? Please take a shower or bath the night before, or the morning of, surgery with an antibacterial soap.? Wear comfortable, loose fitting clothing.? - Jewelry must be removed prior to entering the operating room.? Rings and piercings that are not removed may be cut off. - The hospital will not accept responsibility for valuables.? - Please leave all valuables, including medications, at home the day of surgery. If you are going home after surgery, a licensed recycle driver must drive you home.? - NO public transportation without another adult if you receive anesthesia. - We recommend that an adult stay with you for 24 hours following discharge. - We also recommend that you do not drive, make important decision, drink alcoholic beverages, or take any drugs that were not prescribed by your health care provider for at least 24 hours after your discharge time. Follow any additional instructions given to you from your surgeon. Telephone instructions given to __Harishia__and asked if any additional questions and then verbalized understanding. Patient advised to call surgeon office or pre surgery nurse liaison [phone] if any additional questions.
--- OUTSIDE RECORDS SUMMARY | 2025-02-28 01:08 | XMS_ITS | Encounter Summary ---
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 on file Not on file Not on file documented as of this encounter Plan of Treatment Upcoming Encounters Date Type Department Care Team (Late st Contact Info) Description 07/18/2025 9:20 AM CDT Office Visit [facility] - Family Medicine [address] [place] [address] Park Fuentes MD [address] [place] [address] documented as of this encounter Goals Goal [...] on filedocumented in this encounter Care Teams Cinder Crusher Operator Relationship Specialty Start Date End Date Corey Saavedra Jr., MD PCP - Attributed-[place] [employer] 03/18/24 Ariana Hartman MD [address] [facility] [address] [place] [address] General Surgery 12/13/11 Cullen Singer MD [address] [place] [address] Dermatology 04/08/15 Liliane Mccall Care Coordination Specialist Care Management 12/04/24 01/18/25 documented as of this encounter
--- OUTSIDE RECORDS SUMMARY | 2025-02-28 01:08 | XMS_ITS | Encounter Summary ---
Author Organization [facility] Health Address [address] [place] [address] Care Team Providers Care Relief Mate Name Role Phone Reid Coleman MD Primary Care Provider [phone] Ariana Hartman MD Unavailable [phone] Nancy Hood MD Primary Care Provide r Jeni Carmona MD Primary Care Provider [phone] Cullen Singer MD Unavailable [phone] Jeni Carmona MD Unavailable Tiffanie Bar MD Primary Care Provide r Jeni Carmona MD Primary Care Provider [phone] Tiffanie Bar MD Primary Care Provide r Tiffanie Bar MD Unavailable [phone] Quentin Davenport MD, Corey Guevara Primary Care Provid er Unavailable Quentin Davenport MD, oCrey Guevara Unavailable Marychuy vailable Liliane Mccall Unavailable Liliane Mccall Unavailable Encounter Details Date Type Department Care Team (Late st Contact Info) Description 09/20/2013 [facility] [place] [address] [address] Social History Tobacco Use Types Packs/Day Years Used Date Smoking Tobacco: Never Smokeless Tobacco: Never Alcohol Use Standard Drinks/Week Comments No 0 (1 standard drink = 0.6 oz pur e alcohol) Comments Unknown Sex and Gender Information Value Date Recorded Sex Assigned at Not on file 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 Gender Identity Not on file Sexual Orientation Not on file documented as of this encounter Plan of Treatment Upcoming Encounters Date Type Department Care Team (Late st Contact Info) Description 07/18/2025 9:20 AM CDT Office Visit [facility] - Family Medicine [address] [place] [address] Park Fuentes MD [address] [place] [address] documented as of this encounter Visit Diagnoses Not on filedocumented in this encounter Additional Health Concerns Infection Onset Date Last Indicated Resolved Time COVID-19 Under Investigation 11/17/2022 11/17/2022 11/17/2022 11:57 AM DRAWING SUPERVISOR documented as of this encounter Care Teams Relief Mate Relationship Specialty [place] [address] [facility] [address] PCP - General 07/26/10 12/16/14 Nancy Hood MD [facility] [address] [place] [address] PCP - General Family Medicine 12/17/14 04/07/15 Jeni Carmona MD [facility] [place] [address] PCP - General Family Medicine 04/08/15 06/14/20 Jeni Carmona MD [address] [place] [address] PCP - Attributed-[place] 11/10/17 02/03/21 Tiffanie Bar MD [address] [place] [address] PCP - General Family Medicine 06/15/20 04/29/21 Jeni Carmona MD [address] [place] [address] PCP - General 04/30/21 05/11/21 Tiffanie Bar MD [address] [place] [address] PCP - General Family Medicine 05/12/21 03/06/23 Tiffanie Bar MD [address] [place] [address] PCP - Attributed-[employer] 11/16/21 03/04/22 Corey Saavedra Jr., MD [address] [place] [address] PCP - General Family Medicine 03/07/23 12/24/24 Corey Saavedra Jr., MD PCP - Attributed-[employer] 03/18/24 Ariana Hartman MD [address] [place] [address] General Surgery 12/13/11 Cullen Singer MD [facility] [place] [address] Dermatology 04/08/15 Liliane Mccall Care Coordination Specialist Care Management 05/27/24 05/27/24 Liliane Mccall Care Coordination Specialist Care Management 12/04/24 01/18/25 documented as of this encounter
--- OUTSIDE RECORDS SUMMARY | 2025-02-28 01:08 | XMS_ITS | Continuity of Care Document ---
Author Organization [employer] [facility] [place] Address [address] [place] [address] [address] [place] [address] Phone Care Team Providers Care Head Host/Hostess Name Role Phone Handwork Theodore STEELE Unavailable Unavailable Procedures Procedure Date PT Re-evaluation Therapeutic Activities Neuromuscular Re-Ed Therapeutic Activities Neuromuscular Re-Ed Therapeutic Exercise Therapeutic Activities Neuromuscular Re-Ed Therapeutic Activities Neuromuscular Re-Ed Therapeutic Activities Neuromuscular Re-Ed Progress Note Therapeutic Activities Neuromuscular Re-Ed Therapeutic Exercise Therapeutic Activities Neuromuscular Re-Ed Therapeutic Exercise PT Evaluation Moderate Complexity Therapeutic Activities Neuromuscular Re-Ed Therapeutic Exercise Free Assessment PT Re-evaluation Therapeutic Exercise Therapeutic Activities Neuromuscular Re-Ed Manual Therapy Therapeutic Exercise Therapeutic Activities Neuromuscular Re-Ed Manual Therapy Therapeutic Exercise Therapeutic Activities Neuromuscular Re-Ed Manual Therapy Progress Note Therapeutic Exercise Therapeutic Activities Neuromuscular Re-Ed Manual Therapy Therapeutic Exercise Therapeutic Activities Neuromuscular Re-Ed Manual Therapy Therapeutic Exercise Therapeutic Activities Neuromuscular Re-Ed Manual Therapy Therapeutic Exercise Therapeutic Activities Neuromuscular Re-Ed Manual Therapy Therapeutic Exercise Therapeutic Activities Neuromuscular Re-Ed Manual Therapy PT Evaluation Low Complexity Therapeutic Exercise Neuromuscular Re-Ed Manual Therapy Advance Directives Directive Yes / No Effective Date File Name No Information Encounters Encounter Description Practice Location Reason(s) For Visit Diagnoses Date Provider Providers Copied on Encounter [facility], [id number], tel:[phone] [facility] No Information 4 Handwork Theodore. . Referring Provider: Access Direct. [facility], [id number], tel:[phone] [facility] No Information 4 Handwork Theodore. . Referring Provider: Access Direct. [facility], [id number], tel:[phone] [facility] No Information 4 [place] Mathew. . Referring Provider: Access Direct. [facility], [id number], tel:[phone] [facility] No Information 4 Neel Silverio. . Referring Provider: Access Direct. [facility], [id number], tel:[phone] [facility] No Information 9- 4 Neel Silverio. . Referring Provider: Access Direct. [facility] [address] [address], [place], [place], [id number], tel:[phone] [facility] No Information 0-202 4 Handwork Theodore. . Referring Provider: Access Direct. [facility] [address] [address], [place], [place], [id number], tel:[phone] [facility] No Information 8-202 4 Handwork Theodore. . Referring Provider: Access Direct. [facility] [address] [address], [place], [place], [id number], tel:[phone] [facility] No Information 3-202 4 Handwork Theodore. . Referring Provider: Access Direct. [facility] [address] [address], [place], [place], [id number], tel:[phone] [facility] No Information 4-202 4 Handwork Theodore. . Referring Provider: Physician Peraza. [facility] [address] [address], [place], [place], [id number], tel:[phone] [facility] Oth symptoms and signs involving the musculoskeletal systemOther reduced mobility Sep-0 4-201 9 Elena Joy. . [facility] [address] [place] [address], [place], [place], [id number], tel:[phone] [facility] Oth symptoms and signs involving the musculoskeletal systemOther reduced mobility Aug-2 8-201 8 Elena Joy. . [facility] [address] [address], [place], [place], [id number], tel:[phone] [facility] Oth symptoms and signs involving the musculoskeletal systemOther reduced mobility Aug-2 1-201 8 Elena Joy. . [facility], [place], [place], [id number], tel:[phone] [facility] Ot symptoms and signs involving the musculoskeletal systemOther reduced mobility Aug- 1-201 8 Elena Joy. . [facility], [place], [place], [id number], tel:[phone] [facility] Oth symptoms and signs involving the musculoskeletal systemOther reduced mobility Dec-0 7- 8 Elena Joy. . [facility], [place], [place], [id number], tel:[phone] [facility] Ot symptoms and signs involving the musculoskeletal systemOther reduced mobility Jul-3 0- 8 Elena Rufino. . [facility] [facility], [place], [place], [id number], tel:[phone] [facility] Ot symptoms and signs involving the musculoskeletal systemOther reduced mobility Jul-2 3- 8 Elena Joy. . [facility], [place], [place], [id number], tel:[phone] [facility] Ot symptoms and signs involving the musculoskeletal systemOther reduced mobility 8 Elena Rufino. . [facility], [place], [place], [id number], tel:[phone] [facility] Ot symptoms and signs involving the musculoskeletal systemOther reduced mobility 0 8 Elena Rufino. Laila Family History Family Member Type Diagnosis Age At Onset No Information Payers Payer name Insurance type Covered green party ID Authorsunday wray(s) [facility] Jennifer ORTIZ [id number] Social History Type Description Quantity Date Captured Comments Alcohol Use Details Unknown Caffeine Use Details Unknown Tobacco Use Status Current non-smoker Smoking Status Never smoker Non-Smoking Tobacco Use Details : No Details Available : No Details Available Sex Female Gender Identity Female Chief Complaint And Reason For Visit No Information Reason For Referral Reason For Referral No Information History Of Present Illness Encounter Date Complaint History Of Prese nt Illness No Information Functional Status Date Functional Assessmen t No Information Instructions Date Instruction Additional Infor mation No Information Assessments Type Assessment Date No Information Patient Care Teams Name Effective Dates (start - stop) Status Members No Information
--- OUTSIDE RECORDS SUMMARY | 2025-02-28 01:08 | XMS_ITS | Clinical Summary ---
Author Organization [facility] [email or web address] Address [address] [place] [address] Care Team Providers Care Cleaning Team Member Name Role Phone Ariana Hartman MD Unavailable [phone] Cullen Singer MD Unavailable [phone] Quentin Davenport MD, Corey Guevara Unavailable Marychuy vailable Source Comments [facility],non-owned Affiliates and Associated Physician Practices is amultiple site organization consisting of ambulatory clinics and hospital sitesin [place], [place], [place] and [place]. This disclosure is being madepursuant to the Care Everywhere program and may not contain all information available regarding this patient. Last updated 18.[facility] [email or web address] Allergies Active Allergy Reactions Criticality Noted Date [...] (Flonase) 50 MCG/ACT nasal sprayIndications: Allergic Rhinitis Edelstein 2 (two) sprays into each nostril once [...] leg. Assessment & Plan (10/26/2019 1:38 PM CUSTOMER SPECIALIST): No lesion noted on exam. Reassured. Reminded [...] month. Assessment & Plan (10/26/2019 1:41 PM CUSTOMER SPECIALIST): No neurological no loss noted. Unclear if secondary to deconditioning. Consider PT. Requesting referral to [facility]. Consider ortho consult if not improved. Assessment & Plan (07/18/2018 7:21 PM CDT): Referred to PT. Skin lesion 07/18/2018 Overview (07/18/2018): 07/18/18: Axillary skin gets dark and inflamed for the past few months. Was seen by a machine cementer a month ago and was told the [...] today is unchanged from previous one in [facility]. Recomemnd Holter monitor. 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 Underwent R lumpectomy on January 23.Staging done. [place] node was neg. DCIS. Scheduled for radiation on March 12. No chemo. Assessment & Plan (03/02/2018 4:22 PM CDT): Will get hormone treatment after radiation. Breast neoplasm, Tis (DCIS), right 12/08/2017 Cancer Staging:Clinical stage from 12/17/2017:Stage 0(cTis (DCIS), cN0, cM0, ER+, PA+, HER2+) - Signed by Sari Moreno MD on 09/24/2018 Overview (09/24/2018): Right, subareolar, intraductal papillary carcinoma. Clinical OouF5P5, stage 0. ER pos 95% (strong), PA pos 38% (strong), Her-2 pos (3+ on IHC), ki-67 high 37% 2.2 cm on US Surgeon: Dr. Hartman: initially planned bct, but cancelled. [facility] to [facility] Med onc: Dr. Grisel Merino Umbilical hernia without obstruction and without gangrene 02/06/2017 Overview (02/06/2017): [place] a knot at her belly button a week ago. Had some pain. Cannot feel it now. Assessment & Plan (02/06/2017 3:37 PM CDT): Reviewed treatment options. Surgical consult if it gets painful or does not reduce. Environmental allergies 07/17/2015 Overview (07/18/2018): 07/17/15:Has a chronic cough. Is congested. Ongoing for atleast 20 yrs. Using Claritin. 07/18/18: Started when she returned from the hospital in [place] a week ago. Can hear herself wheezing. [...] done. Assessment & Plan (08/05/2016 5:27 PM CUSTOMER SPECIALIST): Wants to see a surgery specialist for a pap. Recommend getting a colonoscopy. [...] incontinence. Assessment & Plan (08/11/2018 3:13 PM CUSTOMER SPECIALIST): Wants to go [facility]. Referred for physical therapy. [...] ago. Assessment & Plan (10/26/2019 1:39 PM CUSTOMER SPECIALIST): Continue triamterene hydrochlorothiazide 37.5/25 mg daily. Blood [...] monitor. Assessment & Plan (08/11/2018 3:13 PM CUSTOMER SPECIALIST): Does not want to try a calcium [...] months. Assessment & Plan (09/06/2017 12:48 PM CUSTOMER SPECIALIST): Advised on getting labs done prior to [...] months. Assessment & Plan (08/05/2016 5:26 PM CUSTOMER SPECIALIST): Need to get fasting labs prior to refilling medication. Weight gain noted. Advised on how weight loss would help decrease bp. Assessment & Plan (08/25/2015 5:12 PM CUSTOMER SPECIALIST): Blood pressure is within normal limits. She [...] refills. Assessment & Plan (08/05/2016 5:27 PM CUSTOMER SPECIALIST): Need to repeat labs prior to further refills. Assessment & Plan (07/17/2015 4:22 PM CDT): Labs awaited. Vitamin D deficiency 06/02/2014 Overview (12/23/2018): 03/02/2018: Was on medication. Labs done in July, indicate normal levels. 12/10/2018: Not on medication. Assessment & Plan (12/23/2018 12:05 AM CDT): Requesting labs be rechecked. Assessment & Plan (03/11/2018 4:23 PM CDT): May continue 0538-0501 international units of vitamin-D 3 daily. Allergic [...] etc. Assessment & Plan (08/25/2015 5:14 PM CUSTOMER SPECIALIST): Symptoms are most likely due to RADHA then depression.. Will try Prozac. Strongly urged to start counseling. Follow up in 3 months. May need to increase dosage to 40 mg daily in 1-2 weeks if she does not notice any improvement. Obstructive sleep apnea 06/02/2014 Overview (10/26/2019): 10/25/19: Using a CPAP machine for atleast 5 yrs. Sees a architecture intern at [place]. Sleep study done in Jun 2018. CPAP machine was recently changed. Assessment & Plan (10/26/2019 1:40 PM CUSTOMER SPECIALIST): Encouraged to continue use of machine. Advised [...] contacts. Assessment & Plan (09/06/2017 12:53 PM CUSTOMER SPECIALIST): Normal exam. Refused influenza test. Agreed to a CBC. Concerned socorro cough syrup would increase her bp. Will continue using Coricidin. Cough 08/25/2015 09/22/2015 Overview (08/25/2015): Chronic cough. Has underlying allergies but is concerned about using nasal steroids. No history of asthma but notes that she hears herself wheeze occasionally. Assessment & Plan (08/25/2015 5:15 PM CUSTOMER SPECIALIST): Unclear if this is cough variant asthma. [...] Department Care Team Description 12/30/2024 Results Follow-Up [facility] - SENIOR RISK ANALYST [address] [place] [address], [address] [place] [phone] Luis Regalado MD 12/25/2024 2:00 PM CDT Office Visit [address] [phone] Christin Engel, FINE J[employer] SALES ASSOCIATE-SAND HAULER Essential hypertension, benign (Primary Dx); Mixed hyperlipidemia; Post-menopausal bleeding; Non-seasonal allergic rhinitis due to other allergic trigger; Dandruff; Prediabetes; Personal history of breast cancer; Gastroesophageal reflux disease, unspecified whether esophagitis present 12/25/2024 Travel 12/16/[address] [phone] Corey Saavedra Jr., MD Update 12/06/2024 Orders Only [facility] - SENIOR RISK ANALYST [address] [place] [address], [address] [place] [phone] Luis Regalado MD PMB (postmenopausal bleeding); Bulky or enlarged uterus 12/04/2024 Patient Outreach 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 Not on file Not on file Not on file Last Filed Vital Signs Vital Sign Reading Time Taken Comments Blood Pressure 110/62 12/25/2024 2:12 PM CDT Pulse 70 12/25/2024 2:12 PM CDT Temperature 36.2 C (97.2 F) 08/21/2024 1:50 PM CUSTOMER SPECIALIST Respiratory Rate 12 12/25/2024 2:12 PM CDT [...] Description 07/18/2025 9:20 AM CDT Office Visit [facility] - Family Medicine [address] [place] [address] Park Fuentes MD [address] [place] [address] Health Maintenance Due Date Last Done Comments COLOGUARD (AGES 45-75) - COLON CA SCREENING [address] COLONOGRAPHY - COLON CA SCREENING 1965 FIT - COLON CA SCREENING 1965 FLEX SIG - COLON CA SCREENING 1965 HIV SCREENING 1979 PAP with HPV 1994 HEPATITIS B VACCINE (1 of 3 - [...] RFLX HPV ASCU Routine 10/31/2024 2:34 PM CUSTOMER SPECIALIST PMB (postmenopausal bleeding) Pap smear for cervical cancer screening MAMMOGRAM Routine 08/05/2024 1:57 PM CUSTOMER SPECIALIST COMPREHENSIVE METABOLIC PANEL Routine 08/22/2019 11:32 AM CUSTOMER SPECIALIST Mixed hyperlipidemia HEPATITIS C ANTIBODY Routine 08/10/2016 10:38 AM CUSTOMER SPECIALIST Preventative health care from Last 3 Months [...] CT+NG+TV RFLX HPV ASCU (10/31/2024 2:34 PM CUSTOMER SPECIALIST) Diagnosis Comment [facility] ACCOUNT BILL Comment:NEGATIVE FOR [...] UTERINE CERVIX / Unknown 10/31/2024 2:34 PM CUSTOMER SPECIALIST 10/31/2024 Comment:Cervix Release to pa t Narrative [facility] ACCOUNT BILL - 11/04/2024 5:09 PM CUSTOMER SPECIALIST Performed at: - [facility] [address] [id number] Journeyman Power Plant Operator: Bibi Coto MD, Phone: [phone] Performed at: 02 - [facility] [address] [id number] Journeyman Power Plant Operator: Bibi Coto MD, Phone: [phone] Specimen Comment: [id number] Specimen Comment: No. of containers..01 ThinPrep Vial us Luis Regalado MD LAB - PATHOLOGY/CYTOLOGY ORDERA BLES Final Result [facility] ACCOUNT BILL [address] [place] [address] * MAMMOGRAM (08/05/2024 1:57 PM CUSTOMER SPECIALIST) Anatomical Region Laterality Modality Other us Zen James MD SCANNING ONLY Final Result * (ABNORMAL) COMPREHENSIVE METABOLIC PANEL (08/22/2019 11:32 AM CUSTOMER SPECIALIST) Glucose 98 70 - 105 mg/dL [facility] [...] BLOOD SPECIMEN / Unknown 08/22/2019 11:32 AM CUSTOMER SPECIALIST 08/22/2019 Narrative Resulting Agency Comment Lab Testing performed at: [facility] [address] [facility] [phone] Jeni Carmona MD LAB - CHEMISTRY ORDERABLES Final Result Performing Organization Address City/[facility]/ZIP Co de Phone Number [facility] INSURANCE BILL [address] [place] [address] * HEPATITIS C ANTIBODY (08/10/2016 10:38 AM CUSTOMER SPECIALIST) [facility] Hepatitis C Antibody <0.1 0.0 - 0.9 s/co ratio [facility] ACCOUNT BILL Comment: Negative: < 0.8 Indeterminate: 0.8 - 0.9 Positive: > 0.9 . The CDC recommends that a positive HCV antibody result be followed up with a HCV Nucleic Acid Amplification test (069036). Blood BLOOD SPECIMEN / Unknown 08/10/2016 10:38 AM CUSTOMER SPECIALIST 08/10/2016 Narrative Resulting Agency Comment [facility] [address] [facility] [phone] us Jeni Carmona MD LAB - CHEMISTRY ORDERABLES Final Result [facility] ACCOUNT BILL [address] [place] [address] from Last 3 Months or Most Recently Relevant to Health Maintenance Insurance ANTHEM ANTHEM Care Teams Cleaning Team Member Relationship Specialty Start Date End Date Corey Saavedra Jr., MD PCP - Attributed-[employer] 03/18/24 Ariana Hartman MD [address] [place] [address] [address] [place] [address] General Surgery 12/13/11 Cullen Singer MD [facility] [address] [place] [address] Dermatology 04/08/15
--- OUTSIDE RECORDS SUMMARY | 2025-02-28 01:08 | XMS_ITS | Clinical Summary ---
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 [address] [place] [address] Luis Regalado MD PMB (postmenopausal [...] dimension by up to 13.1 cm in tetj-eg-mree dimension. There are multiple rounded masses throughout [...] dimension by up to 13.1 cm in glrr-ne-grsx dimension. There are multiple rounded masses throughout [...] - Final from Last 3 Months Insurance [employer] CHOICE [employer] CHO[employer] Care Teams Quantitative Consultant Relationship Specialty Start Date End Date Jeni Carmona MBBS PCP - General Family Practice 01/03/18
--- OUTSIDE RECORDS SUMMARY | 2025-02-28 01:08 | XMS_ITS | Patient Health Record ---
Author Organization [facility] Address [address] [place], [place] [address] Care Team Providers Care Elect Equip Maint Eng Name Role Phone Keo Lockwood Primary Care [...] Start Date Coverage End Date Jennifer RAVI ([facility]) [address] [place] [id number] MICAELA ROBLEDO Self - patient is the insured 2
--- OUTSIDE RECORDS SUMMARY | 2025-02-28 01:08 | XMS_ITS | Patient Health Record ---
Author Organization [facility] Or Address [address] [facility] [place], [place] [id number] Care Team Providers Care Sweatband Shaper Name Role Phone ERWIN LOPEZ Unavailable [phone] Reason For Referral No Information Plan Of Treatment No Information Insurance Providers Payer Name Payer Address Payer Phone Subscriber Number Group Number Insured Name Patient Relationship to Insured Coverage Start Date Coverage End Date Jennifer MORGAN ([employer]) [address] [place], [place] [id number] [phone] Tory Noland Self - patient is the insured
[2025-02-28 09:37] VITALS: BP 151/80; PULSE 52; RESP 18; TEMP 36.2; O2SAT 100
[2025-02-28 09:40] VITALS: BMI 32.8
--- NOTE | 2025-02-28 10:10 | P.PNAN_ITS ---
Anes - Initial Pre Proc Eval Procedure: Operation Date: 02/28/25 11:45 Proposed Procedures p Hysteroscopy, Dilation and Curettage with Removal Endometrial Lesions if Necessary - Douglas Lemos MD Date/Time: 02/28/25 10:10 Surgeon: Douglas Lemos MD Pre Op Diagnosis: post menopausal bleeding, fibroids Patient Data Age: 59 Gender: F Height: 1.68 m Weight: 93.2 kg Allergies Allergy/AdvReac Type Severity Reaction Status Date / Time lisinopril Allergy Unknown Verified 02/21/25 08:58 Home Medications ?Medication ?Instructions ?Recorded ?Confirmed ?Type loratadine 10 mg capsule (Allergy 10 mg PO DAILY 01/28/25 02/21/25 History Relief (loratadine)) losartan 50 mg tablet 50 mg PO DAILY 01/28/25 02/21/25 History rosuvastatin 10 mg tablet (Crestor) 10 mg PO DAILY 01/28/25 02/21/25 History cyanocobalamin (vitamin B-12) 1,000 mcg PO DAILY 02/21/25 02/21/25 History 1,000 mcg tablet (Vitamin B-12) omega 2-dwp-nqo-fish oil 1,000 mg 1 cap PO DAILY 02/21/25 02/21/25 History (120 mg-180 mg) capsule (Fish Oil) triamterene 37.5 1 tablet PO DAILY 02/21/25 02/21/25 History mg-hydrochlorothiazide 25 mg tablet Patient hx anesthesia problems: none Family hx anesthesia problems: none Results Review: All pre-operative results and documents have been reviewed as part of the pre- operative evaluation. [facility] Past Medical History Medical History H/O fracture of femur Hypertension Hyperlipemia H/O malignant neoplasm of breast Allergies Surgical History Surgical History H/O lumpectomy Family History Family History Mother Hypertension Social History Social History Smoking status: Never smoker Alcohol intake: current Substance use: never Substance use type: does not use Living arrangements: with family Spiritual care concerns: Yes (NO Blood) Anes - Eval Final PreProcedure Day of Procedure 02/28/25 10:10 Patient weight: obese Heart: regular rate and rhythm Lungs: clear to auscultation Airway: Mallampati scale class II Neurological: alert and oriented Last oral intake: >/= 8 hours ASA classification: III Emergent: no Anesthetic plan: proceed Anesthesia type and monitoring: general GIVS and standard monitoring Results Review: All pre-operative results and documents have been reviewed as part of the pre- operative evaluation. Informed Consent: The patient's anesthetic plan and its attendant risks and benefits were discussed with the patient/family/POA. Questions were solicited and answers provided to the satisfaction of the patient/family/POA.
--- NOTE | 2025-02-28 10:17 | WPDHPUPDATE1 ---
History and Physical Update Update Date/Time: 02/28/25 10:17 History and Physical has been reviewed, including an updated exam of the patient. There are NO changes in the patient's condition. Risks, benefits, and alternatives have been discussed and questions answered. Patient agrees to proceed with procedure.
[2025-02-28] MEDS: LACTATED RINGERS 1,000 ML 30 ML IV CONT (10:20)
[2025-02-28] MEDS: ACETAMINOPHEN 500 MG TABLET 1000 MG PO (10:20)
[2025-02-28] MEDS: ceFAZolin 2 GM/D5W 50 ML 2 GM/50 ML BAG IVPB (11:05)
[2025-02-28] MEDS: LIDOCAINE 1% LOCAL INJ 10 ML VIAL INFILTRATE (11:16)
--- NOTE | 2025-02-28 11:19 | S_PTH ---
PATIENT: Tory Noland LOC: [facility] U#:[id number] AGE/SX: 59/F ROOM: RE02/28/[address]: Douglas Lemos MD : 1965 BED: DIS: 02/28/2025 SPEC #: [id number] RECD: 02/28/25 13:27 STATUS: JAGUAR REQ #: [id number] HARRY: 02/28/25 11:[address]: Douglas Lemos DEPT: [facility] Surgical RECD BY: Martha Howard Tissues: A - Endometrial Curettings Procedures: Hematoxylin and Eosin Stain Gross and Microscopic Level 4
--- NOTE | 2025-02-28 11:19 | W.PM.PROC2 ---
Procedure Note - Detailed Date of Procedure 02/28/25 Pre-op Diagnosis post menopausal bleeding, fibroids Post-op Diagnosis Same Procedure Performed Hysteroscopy and dilation and curettage Surgeon Douglas Lemos MD Anesthesia MAC and Local Indications Postmenopausal bleeding Findings Uterus sound to 8, normal atrophic appearing cavity, no lesions, minimal tissue with curettage Description of Procedure After informed consent was obtained patient was taken to the operating room and adequate IV sedation was administered. Attention was turned to the vagina. Speculum was inserted. Single-tooth tenaculum placed on the anterior lip of the cervix. The uterus was sounded to 8 cm. The cervix was dilated to an 4 Meadows dilator. The hysteroscope was inserted into the cavity. The findings were a normal atrophic uterine cavity. The hysteroscope was removed. A curettage performed, minimal tissue consistent with atrophic cavity. The single-tooth tenaculum was removed hemostasis was noted at the tenaculum site. Sponge count correct. The patient taken to recovery in stable condition. Estimated Blood Loss 5 Drains No Packing No Pathology Yes (Curettage scant tissue) Complications No immediate complications Condition Stable Disposition Same day [facility] Billing Surgery - Charge Forward: Surgery Billing
[2025-02-28 11:25] VITALS: BP 101/65; PULSE 59; O2SAT 100
[2025-02-28 11:55] VITALS: BP 114/65; PULSE 60; RESP 16; O2SAT 100
[2025-02-28 12:25] VITALS: BP 128/77; PULSE 56; RESP 16
[2025-02-28 12:45] VITALS: BP 121/68; PULSE 59; RESP 16
== END 2025-02-28 12:57 | disposition home or self-care (01) ==
PROVIDERS: Visit Provider Obstetrics & Gynecology
PROC: 0U5B8ZZ Destruction of Endometrium, Via Natural or Artificial Opening Endoscopic (ICD-10-PCS; CPT 58563; principal; 2025-02-28 11:45)
DX: N95.0 Postmenopausal bleeding (principal); E78.5 Hyperlipidemia, unspecified; I10 Essential (primary) hypertension; E66.9 Obesity, unspecified; Z68.32 Body mass index [BMI] 32.0-32.9, adult; Z79.899 Other long term (current) drug therapy; Z98.890 Other specified postprocedural states; Z85.3 Personal history of malignant neoplasm of breast
CPT/HCPCS: 58558; 88305; A9270; J0690; J2003; J2250; J2704; J3010; J7120